=== PATIENT | male | born 1930 | race Caucasian/White ===

== ENCOUNTER 2016-05-19 12:14 | Emergency (ER) | payer OTHER, MEDICAID ==
--- NOTE | 2016-05-19 12:14 | EDPHY ---
H & P Time Seen by Provider: 05/19/16 12:14 HPI/ROS: CHIEF COMPLAINT: Right hip pain HISTORY OF PRESENT ILLNESS: Patient was discharged 05/13/2016 and discharge summary reviewed personally by myself. He had a nondisplaced periprosthetic right hip fracture which was deemed non operative. He is currently in rehab facility. Patient has been complaining of increased moderate right hip pain for the last 2 days. Located in the proximal femoral shaft. States worse with movement states radiates down toward the right knee. Possibility of minor trauma 2 days ago relayed by EMS, patient has no recollection. He arrives by EMS. REVIEW OF SYSTEMS: Eye: no change in vision ENT: no sore throat Cardiac: no chest pain or syncope Pulmonary: no cough or SOB Abdomen: no vomiting, diarrhea, abdominal pain Musculoskeletal: no back pain or neck pain, query recent fall. Skin: no rash Neuro: no headache; ongoing dementia after ICH Constitutional: no fever : no urinary symptoms A comprehensive 10 point review of systems is otherwise negative aside from elements mentioned in the history of present illness. PAST MEDICAL HISTORY: 03/06/2012 right HIRAL by Tamra; also Includes nondisplaced right hip periprosthetic fracture discharge 05/13/2016 non operative treatment, history of seizures, history of brain aneurysm with intraparenchymal hemorrhage, dementia Social history: Current resident of [facility] General Appearance: Alert and cooperative. Eyes: No scleral icterus. ENT, Mouth: Normal mucous membranes. Respiratory: Normal respiratory effort, breath sounds equal, lungs are clear to auscultation. Cardiovascular: Regular rate and rhythm. Gastrointestinal: Abdomen is soft and non tender. Neurological: Alert, follows commands. Normally conversant. Face symmetric, normal sensation in all extremities. Can move both feet. Poor long and short term memory. Skin: Warm and dry, no rashes. No rash or laceration or bruising noted over the right hip. Musculoskeletal: Pain with movement of the right hip. Slight external rotation. Normal motor and sensory in both feet. Normal dorsalis pedis pulse in both feet. No knee, tibia, fibula, or ankle or foot tenderness on the right. Compartments in right thigh soft. Psychiatric: Patient is intermittently calm and then yelling. Emergency Department course/MDM: X-rays of the right femur and hip obtained. Discussed with Master at 1315 and 1325; he reviewed the case and Xrays personally, recommends transfer to joint revision specialist for further evaluation. He does not do this type of surgery. Discussed with the patient and family; he is interested in transfer if needed for evaluation for surgical orthopedic revision. Reason for transfer to [place] for specialist orthopedist discussed with patient and family and consented. Discussed with Dr. Jiménez at [place] at 1330; accepted in transfer to the ED at [place]. Also discussed with ED attending Cleve at 1336. Reason for transfer is joint revision ortho specialist not currently available here at [facility], transfer by EMS required as non ambulatory secondary to ortho injury. Stable for transfer. Constitutional: Initial Vital Signs Temperature (C) 36.6 C 05/19/16 12:21 Heart Rate 88 05/19/16 12:21 Respiratory Rate 18 05/19/16 12:21 Blood Pressure 148/86 H 05/19/16 12:21 O2 Sat (%) 97 05/19/16 12:21 O2 Delivery Mode Room Air Allergies/Adverse Reactions: hydrocodone Allergy (Intermediate, Verified 01/27/16 23:23) Vomiting morphine Allergy (Mild, Verified 01/27/16 23:23) Other-Enter Comments Home Medications: Medication Instructions Recorded Cholecalciferol Vit D3 [Vitamin D3 1,000 units PO HS 05/10/16 (*)] Fluticasone Nasal [Flonase Nasal 2 sprays NASAL HS 05/10/16 [place]] lamoTRIgine [LamICTAL 100 MG (*)] 200 mg PO BID 05/10/16 Acetaminophen [Tylenol 325mg (*)] 650 mg PO Q4HRS PRN #0 tab 05/13/16 Enoxaparin [Lovenox 40 MG (*)] 40 mg SC DAILY #0 syr 05/13/16 Polyethylene Glycol 3350 [Miralax 17 gm PO DAILY PRN #0 pkt 05/13/16 17 gm (*)] Sennosides/Docusate Sodium 1 - 2 tab PO BID #0 tab 05/13/16 [Senokot-S] oxyCODONE IR [Oxycodone Ir (*)] 5 - 10 mg PO Q4 PRN #0 tab 05/13/16 Medical Decision Making - Diagnostics Imaging: X-ray of the right hip and femur viewed independently by myself shows slight increase in displacement of the periprosthetic hip fracture compared x-rays done 2 weeks ago viewed on PACs. Differential Diagnosis: Differential for hip pain considered including but not limited to hip fracture, prosthetic displacement, contusion, pelvis injury. Consult/Admit Bed Type: Tamra [facility]; not in [facility], [facility] consult career orientation teacher Departure - Departure Disposition: Acute Care Hospital Not [facility] Clinical Impression: Periprosthetic fracture around internal prosthetic right hip joint Condition: Good Instructions: Hip Fracture (ED) Referrals: Saran Barboza MD [Medical Doctor] - As per Instructions
[2016-05-19 12:25] VITALS: O2SAT 97
--- NOTE | 2016-05-19 13:28 | DX ---
Right hip series 2 views Right femur series 2 views History: Increasing right-sided hip pain. Findings: Comparison to May 10, 2016. Right hip: Oblique fracture is once again noted proximal right femoral shaft inferior to the greater and lesser trochanters. This has developed minimal displacement since the prior study by about 5 mm. No additional fracture is seen. The femoral and acetabular component of the hip replacements are once again noted. Considering the 5 mm of displacement of the shaft of the right femur this probably repr esents loosening around the distal component of the hip replacement. No additional fractures are seen . There is moderate left hip joint space narrowing. Soft tissues are unremarkable. Right femur: No additional fractures are seen associated with the right femur. The knee joint space i s relatively normal. Soft tissues are unremarkable. Impression: 1. Interval 5 mm of displacement of the fracture proximal shaft right femur below the level of the tr ochanters as detailed above.
[2016-05-19 15:24] VITALS: BP 158/88; PULSE 90; RESP 16; TEMP 98.2
== END 2016-05-19 15:21 | disposition short-term general hospital (02) ==
LOC: EDUNIT#
DX: M97.01XA Periprosthetic fracture around internal prosthetic right hip joint, initial encounter (principal); W19.XXXA Unspecified fall, initial encounter

== ENCOUNTER 2016-06-27 17:17 | Inpatient (IN) | payer OTHER, MEDICAID ==
--- NOTE | 2016-06-27 17:35 | EDPHY ---
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 right hip replacement, aspiartion pneumonia 12/28, dementia - Social History Smoking Status: Former smoker Constitutional: Initial Vital Signs Temperature (C) 38.2 C 06/27/16 17:24 Heart Rate 89 06/27/16 17:24 Respiratory Rate 15 06/27/16 17:24 Blood Pressure 173/83 H 06/27/16 17:24 O2 Sat (%) 91 L 06/27/16 17:24 O2 Delivery Mode Room Air O2 (L/minute) 2 Allergies/Adverse Reactions: hydrocodone Allergy (Intermediate, Verified 06/27/16 17:23) Vomiting morphine Allergy (Mild, Verified 06/27/16 17:23) Other-Enter Comments Home Medications: Medication Instructions Recorded Cholecalciferol Vit D3 [Vitamin D3 1,000 units PO HS 05/10/16 (*)] lamoTRIgine [LamICTAL 100 MG (*)] 200 mg PO BID 05/10/16 Medical Decision Making ED Course/Re-evaluation: CHIEF COMPLAINT: Fever, cough HISTORY OF PRESENT ILLNESS: The patient is is an 85 y/o male arriving with his complaining of a productive cough for the past 2 weeks and intermittent fever for the past few days. His fever got as high as 103F today and he began vomiting. He has been able to keep any food down. He has associated chills and significant fatigue. He has a history of brain aneurysm, TIAs, and dementia. History from the patient is limited and primarily obtained from his at bedside. REVIEW OF SYSTEMS: A 10 point review of systems was performed and is negative with the exception of the elements mentioned in the history of present illness. Obtained from . PHYSICAL EXAM: HR, BP, O2 Sat, RR. Temp noted General Appearance: Fatigued, dehydrated, appropriate, and ill-appearing. Head: Atraumatic without scalp tenderness or obvious injury Eyes: Pupils equal, round, reactive to light and accommodation, EOMI, no trauma , no injection. Ears: Clear bilaterally, no perforation, normal landmarks Nose: Atraumatic, no rhinorrhea, clear. Throat: There is no erythema or exudates, no lesions, normal tonsils, mucus membranes moist. Neck: Supple, 2+ carotid upstroke, nontender, no lymphadenopathy. Respiratory: No retractions, no distress, no wheezes, and no accessory muscle use. Lungs have coarse rhonchi bilaterally, not moving air well. Cardiovascular: Regular rate and rhythm, no murmurs, rubs, or gallops. Bilateral carotid, radial, dorsalis pedis, and posterior tibial pulses intact. Good capillary refill all extremities. Gastrointestinal: Abdomen is soft, nontender, non-distended, no masses, no rebound, no guarding, no peritoneal signs. Musculoskeletal: Normal active ROM of all extremities, atraumatic. Neurological: Somnolent, oriented x2, and interactive but fatigued. The patient has normal DTRs and non-focal cranial nerves, motor, sensory, and cerebellar exam. Skin: No rashes, good turgor, no nodules on palpation. Hot to the touch. Past medical history: Brain aneurysm with intraparenchymal hemorrhage, seizures , dementia, depression TIAs, migraine headaches Past surgical history: Right hip arthroplasty, craniotomy June 2012 for bleed evacuation Family history: noncontributory Social history: at bedside, daily cannabis use Prior medical records reviewed including admission 05/10/16 for hip pain. DIAGNOSTICS/PROCEDURES/CRITICAL CARE TIME: Study: Chest x-ray Indication: Cough, fever Results: Chest x-ray was obtained. The results of the study are right middle lobe and lower lobe pneumonia. The study was read by the radiologist, Dr. Syed. I viewed the images myself on the PACS system. DIFFERENTIAL DIAGNOSIS: The differential diagnosis for the patient's fever included but was not limited to pneumonia, urinary tract infection, viral syndrome, meningitis, and sepsis. MEDICAL DECISION MAKING: The patient is a chronically-ill appearing 85 y/o male who presents with a several week history of productive cough and intermittent fever over the last few days. His reports he has been increasingly fatigued and starting vomiting today. He complains of chills. He has bilateral coarse rhonchi and is warm to the touch on exam. His symptoms likely indicate pneumonia, but will check for other infectious sources as well. IV established. Labs drawn including CBC, CHEM, lactate, culture, bilirubin, PTPTT. Flu swab ordered. UA ordered. Chest x-ray ordered. 1000mg PO Tylenol and 1L IV NS administered. Chest x-ray shows right middle and lower lobe pneumonia. While he has a known infection he does not meet sepsis criteria. Plan for 500mg IV azithromycin and 1gm IV Ceftriaxone and admission to the hospital. 1825: Spoke with Dr. Moss, hospitalist. He accepts admission. - Data Points Laboratory Results: Laboratory Results 06/27/16 17:40 06/27/16 17:40 06/27/16 06/27/16 17:45 17:40 WBC 16.90 H 10^3/uL (3.80-9.50) RBC 3.83 L 10^6/uL (4.40-6.38) Hgb 12.2 L g/dL (13.7-17.5) Hct 36.3 L % (40.0-51.0) MCV 94.8 fL (81.5-99.8) MCH 31.9 pg (27.9-34.1) MCHC 33.6 g/dL (32.4-36.7) RDW 15.3 H % (11.5-15.2) Plt Count 420 H 10^3/uL (150-400) MPV 8.7 fL (8.7-11.7) Neut % (Auto) 91.0 H % (39.3-74.2) Lymph % (Auto) 3.1 L % (15.0-45.0) [place] % (Auto) 4.9 % (4.5-13.0) Eos % (Auto) 0.0 L % (0.6-7.6) Baso % (Auto) 0.2 L % (0.3-1.7) Nucleat RBC Rel Count 0.0 % (0.0-0.2) Absolute Neuts (auto) 15.37 H 10^3/uL (1.70-6.50) Absolute Lymphs (auto) 0.52 L 10^3/uL (1.00-3.00) Absolute Monos (auto) 0.83 H 10^3/uL (0.30-0.80) Absolute Eos (auto) 0.00 L 10^3/uL (0.03-0.40) Absolute Basos (auto) 0.04 10^3/uL (0.02-0.10) Absolute Nucleated RBC 0.00 10^3/uL (0-0.01) Immature Gran % 0.8 % (0.0-1.1) Immature Gran # 0.14 H 10^3/uL (0.00-0.10) PT 14.8 SEC (12.0-15.0) INR 1.16 (0.83-1.16) APTT 29.3 SEC (23.0-38.0) VBG Lactic Acid 1.3 mmol/L (0.7-2.1) Sodium 143 mEq/L (134-144) Potassium 3.1 L mEq/L (3.5-5.2) Chloride 106 mEq/L (97-110) Carbon Dioxide 24 mEq/l (22-31) Anion Gap 13 mEq/L (8-16) BUN 14 mg/dL (7-23) Creatinine 0.9 mg/dL (0.7-1.3) Estimated GFR > 60 Glucose 120 H mg/dL (70-100) Calcium 9.1 mg/dL (8.5-10.4) Total Bilirubin 0.7 mg/dL (0.1-1.4) Influenza Typ A,B (DFA) NEGATIVE FOR FLU (NEGATIVE) Medications Given: Discontinued Medications Acetaminophen (Tylenol) 1,000 mg PO EDNOW ONE Stop: 06/27/16 17:43 Last Admin: 06/27/16 17:47 Dose: 1,000 mg Departure - Departure Disposition: [facility] In[facility] Acute Clinical Impression: Pneumonia Qualifiers: Qualifier Code: (J18.1) Lobar pneumonia, unspecified organism Condition: Fair Report Scribed for: Dante Rosales Report Scribed by: Nati Dailey Date of Report: 06/27/16 Time of Report: 18:00
[2016-06-27] MEDS ORDERED: ACETAMINOPHEN 500 MG TAB PO ONE (17:42)
[2016-06-27 17:52] LABS: % IMMATURE GRANULYOCYTES 0.8 % (0.0-1.1); ABSOLUTE IMMATURE GRANULOCYTES 0.14 10^3/uL (0.00-0.10); ADD DIFF? NO; ADD MORPH? NO; ADD SCAN? NO; ATYPICAL LYMPHOCYTE FLAG 0 (0-99); FRAGMENT RBC FLAG 0 (0-99); HEMATOCRIT 36.3 % (40.0-51.0); HEMOGLOBIN 12.2 g/dL (13.7-17.5); LEFT SHIFT FLG 20 (0-99); LIPEMIA HEMOLYSIS FLAG 80 (0-99); MEAN CELL HEMOGLOBIN 31.9 pg (27.9-34.1); MEAN CELL HEMOGLOBIN CONCENTR. 33.6 g/dL (32.4-36.7); MEAN CELL VOLUME 94.8 fL (81.5-99.8); MEAN PLATELET VOLUME 8.7 fL (8.7-11.7); PLATELET CLUMPS FLAG 20 (0-99); PLATELET COUNT 420 10^3/uL (150-400); RED BLOOD CELL COUNT 3.83 10^6/uL (4.40-6.38); RED CELL DISTRIBUTION WIDTH 15.3 % (11.5-15.2)
[2016-06-27 18:02] LABS: INR 1.16 (0.83-1.16); PROTIME(PATIENT) 14.8 SEC (12.0-15.0)
[2016-06-27 18:03] LABS: APTT 29.3 SEC (23.0-38.0)
[2016-06-27 18:10] LABS: ANION GAP 13 mEq/L (8-16); BILIRUBIN,TOTAL 0.7 mg/dL (0.1-1.4); CALCIUM 9.1 mg/dL (8.5-10.4); CARBON DIOXIDE 24 mEq/l (22-31); CHLORIDE 106 mEq/L (97-110); CREATININE 0.9 mg/dL (0.7-1.3); GLOMERULAR FILTRATION RATE > 60; GLUCOSE 120 mg/dL (70-100); POTASSIUM 3.1 mEq/L (3.5-5.2); SODIUM 143 mEq/L (134-144)
[2016-06-27] MEDS ORDERED: AZITHROMYCIN IV 500 MG in D5W 250 ML IV ONE (18:21)
[2016-06-27] MEDS ORDERED: NS 1,000 ML IV ONE (18:36)
--- NOTE | 2016-06-27 19:56 | DX ---
Chest, Two Views June 27, 2016 at 1727 Hours History: Cough, shortness of breath. Meets sepsis criteria, suspected infection. Comparison: January 2016 and December 2012. Findings: Cardiac silhouette is within normal range. Alveolar opacity identified in the right middle lobe and right lower lobe, new since the previous studies. Left lung is clear. No definite pleural ef fusion or pneumothorax. Atherosclerotic tortuous aorta. Impression: 1. Right middle lobe and right lower lobe pneumonia. 2. Recommend follow-up until clear. Findings and recommendations discussed with emergency department physician, Dante Rosales MD at 180 0 hours on June 27, 2016. Final report concurs with initial preliminary interpretation.
[2016-06-27] MEDS ORDERED: ONDANSETRON 4 MG/2 ML VIAL IVP PRN (20:38)
[2016-06-27] MEDS ORDERED: ACETAMINOPHEN 325 MG TAB PO PRN (20:38)
[2016-06-27] MEDS ORDERED: ONDANSETRON DISINTEGRATING 4 MG TAB PO PRN (20:38)
--- NOTE | 2016-06-27 21:17 | GHP ---
[f rep st] HISTORY AND PHYSICAL DATE OF ADMISSION: 06/27/2016 CHIEF COMPLAINT: Cough, fever. HISTORY OF PRESENT ILLNESS: This is an 85-year-old male with a history of intracranial hemorrhage wi th resultant right-sided weakness. He has had 2 weeks of cold-like symptoms, but then in the last co uple of days had fever and today vomiting. Has had productive cough. No anto chills and fatigue. Fever today of 103. REVIEW OF SYSTEMS: A 10-point review of systems was obtained and was negative. PAST MEDICAL HISTORY: 1. Intracranial hemorrhage. 2. Seizure disorder. 3. Dementia. MEDICATIONS: Reviewed. SOCIAL HISTORY: No smoking. He does smoke some marijuana. FAMILY HISTORY: Both parents are . PHYSICAL EXAMINATION: VITAL SIGNS: Afebrile. Blood pressure is 140/69, heart rate 87, oxygen satur ation 96% on room air. GENERAL: Patient is well developed, in no apparent distress. HEENT: Nonict santiago sclerae. EOMs intact. Moist mucous membranes. NECK: Supple. No thyromegaly. LUNGS: Fair e ffort, fairly clear. CARDIOVASCULAR: Regular rate and rhythm. No murmurs, gallops. ABDOMEN: Posi tive bowel sounds. Soft, nontender, nondistended. No hepatosplenomegaly. EXTREMITIES: No clubbing , cyanosis, or edema. SKIN: Without rash, dry, intact. NEUROLOGIC: Alert, responding to some ques tions. Right-sided weakness. PSYCHIATRIC: Normal mood and affect. LABORATORY DATA: White blood count 16, hemoglobin is 12, platelets 420. Chemistries normal. Potass ium 3.1. Chest x-ray shows right middle lobe, right lower lobe pneumonia. ASSESSMENT/PLAN: This is an 85-year-old male presenting with community-acquired pneumonia. 1. Community-acquired pneumonia. Patient was in the hospital in April, but we will treat as comm unity-acquired. The other option would be aspiration. At this point, would treat with standard ceft riaxone and azithromycin. If he is not improving by tomorrow, would probably switch over to antibiot ic that would cover aspiration. 2. History of intracranial hemorrhage with resultant right-sided weakness. 3. Seizure disorder. Continue Lamictal. /[id number]/MODL
[2016-06-27] MEDS: NS 1,000 ML IV SCH (21:38)
[2016-06-27] MEDS: lamoTRIgine 100 MG TAB PO SCH (21:38)
[2016-06-28 01:44] LABS: COLOR YELLOW; LEUKOCYTE ESTERASE,URINE NEGATIVE (NEGATIVE); NITRITE,URINE NEGATIVE (NEGATIVE)
[2016-06-28 01:50] LABS: MUCUS 4+ /lpf (NONE-1+)
[2016-06-28 06:06] LABS: ALANINE AMINOTRANSFERASE 24 IU/L (21-72); ALBUMIN 2.5 g/dL (3.5-5.0); ALKALINE PHOSPHATASE 76 IU/L (38-126); ANION GAP 6 mEq/L (8-16); ASPARTATE AMINOTRANSFERASE 16 IU/L (17-59); BILIRUBIN,TOTAL 0.5 mg/dL (0.1-1.4); CALCIUM 7.8 mg/dL (8.5-10.4); CARBON DIOXIDE 24 mEq/l (22-31); CHLORIDE 111 mEq/L (97-110); CREATININE 0.7 mg/dL (0.7-1.3); GLOMERULAR FILTRATION RATE > 60; GLUCOSE 90 mg/dL (70-100); POTASSIUM 3.2 mEq/L (3.5-5.2); SODIUM 141 mEq/L (134-144)
[2016-06-28 07:14] LABS: % IMMATURE GRANULYOCYTES 0.8 % (0.0-1.1); ABSOLUTE IMMATURE GRANULOCYTES 0.11 10^3/uL (0.00-0.10); ADD DIFF? NO; ADD MORPH? NO; ADD SCAN? NO; ATYPICAL LYMPHOCYTE FLAG 0 (0-99); FRAGMENT RBC FLAG 0 (0-99); HEMATOCRIT 28.6 % (40.0-51.0); HEMOGLOBIN 9.4 g/dL (13.7-17.5); LEFT SHIFT FLG 10 (0-99); LIPEMIA HEMOLYSIS FLAG 80 (0-99); MEAN CELL HEMOGLOBIN 31.8 pg (27.9-34.1); MEAN CELL HEMOGLOBIN CONCENTR. 32.9 g/dL (32.4-36.7); MEAN CELL VOLUME 96.6 fL (81.5-99.8); MEAN PLATELET VOLUME 9.6 fL (8.7-11.7); PLATELET CLUMPS FLAG 0 (0-99); PLATELET COUNT 337 10^3/uL (150-400); RED BLOOD CELL COUNT 2.96 10^6/uL (4.40-6.38); RED CELL DISTRIBUTION WIDTH 15.4 % (11.5-15.2)
[2016-06-28] MEDS: AZITHROMYCIN 250 MG TAB PO SCH ×2 (10:09→10:39)
[2016-06-28] MEDS: ENOXAPARIN 40 MG/0.4 ML SYR SC SCH ×2 (10:09→10:39)
[2016-06-28] MEDS: lamoTRIgine 100 MG TAB PO SCH ×3 (10:10→20:41)
[2016-06-28] MEDS: NS 1,000 ML IV SCH (10:13)
--- NOTE | 2016-06-28 17:28 | HOSPPROG ---
Hospitalist Progress Note Assessment/Plan: 85 yo M w/hx of ICH with residual right sided deficits presenting with CAP # CAP: with RML and RLL PNA noted on personal review of imaging, continue on ctx /azithro # sepsis: with fever and luekocytosis but non toxic and HD stable, 2/2 above, cultures pending # h/o ICH: with residual right sided weakness and cognitive deficits, unclear if patient is at baseline, will need to get further hx from family. # deconditioning: patient unable to walk independently, will get pt/ot/cm involved, unclear if able to return to home # seizure d/o: continue op meds # dispo: IP status, will need > 48 hours stay for eval/mgmt of above patient new to my care. old records reviewed and summarized as above. Subjective: no significant overnight events, patient currenlty states he feels better than we think he's doing Objective: Vital Signs Temp Pulse Resp BP Pulse Ox 36.8 C 87 16 140/78 H 95 06/28/16 15:36 06/28/16 15:36 06/28/16 15:36 06/28/16 15:36 06/28/16 15:36 Laboratory Results 06/28/16 05:10 06/28/16 05:10 06/27/16 06/28/16 06/29/16 05:59 05:59 05:59 Intake Total 1000 596 Output Total 60 200 Balance 940 396 PT 14.8 SEC (12.0-15.0) 06/27/16 17:40 INR 1.16 (0.83-1.16) 06/27/16 17:40 awake alert anicteric op clear rrr no mrg coarse bs wet cough soft nt nd no cce warm dry well perfused oriented appropriate - Time Spent With Patient Time Spent with Patient: greater than 35 minutes Time Spent with Patient: Greater than 35 minutes spent on this patients care, greater than 50% of time spent counseling, educating, and coordinating care regarding the above mentioned plan. ICD10 Worksheet Patient Problems: Problems Problem Status Diagnosed Pneumonia Acute Periprosthetic fracture around internal prosthetic right hip joint Acute Seizure Acute Dante's paralysis Acute
[2016-06-29 06:46] LABS: ANION GAP 9 mEq/L (8-16); CALCIUM 8.3 mg/dL (8.5-10.4); CARBON DIOXIDE 25 mEq/l (22-31); CHLORIDE 106 mEq/L (97-110); CREATININE 0.7 mg/dL (0.7-1.3); GLOMERULAR FILTRATION RATE > 60; GLUCOSE 90 mg/dL (70-100); POTASSIUM 3.2 mEq/L (3.5-5.2); SODIUM 140 mEq/L (134-144)
[2016-06-29 06:56] LABS: % IMMATURE GRANULYOCYTES 1.5 % (0.0-1.1); ABSOLUTE IMMATURE GRANULOCYTES 0.18 10^3/uL (0.00-0.10); ABSOLUTE NRBC COUNT 0.02 10^3/uL (0-0.01); ADD DIFF? NO; ADD MORPH? NO; ADD SCAN? NO; ATYPICAL LYMPHOCYTE FLAG 0 (0-99); FRAGMENT RBC FLAG 20 (0-99); HEMATOCRIT 30.1 % (40.0-51.0); HEMOGLOBIN 9.9 g/dL (13.7-17.5); LEFT SHIFT FLG 10 (0-99); LIPEMIA HEMOLYSIS FLAG 80 (0-99); MEAN CELL HEMOGLOBIN 31.7 pg (27.9-34.1); MEAN CELL HEMOGLOBIN CONCENTR. 32.9 g/dL (32.4-36.7); MEAN CELL VOLUME 96.5 fL (81.5-99.8); MEAN PLATELET VOLUME 8.9 fL (8.7-11.7); NRBC-AUTO% 0.2 % (0.0-0.2); PLATELET CLUMPS FLAG 10 (0-99); PLATELET COUNT 444 10^3/uL (150-400); RED BLOOD CELL COUNT 3.12 10^6/uL (4.40-6.38); RED CELL DISTRIBUTION WIDTH 15.3 % (11.5-15.2)
[2016-06-29 07:23] VITALS: BP 160/89; PULSE 80; RESP 18; TEMP 97.9
[2016-06-29] MEDS: lamoTRIgine 100 MG TAB PO SCH (08:29)
[2016-06-29] MEDS: AZITHROMYCIN 250 MG TAB PO SCH (08:29)
[2016-06-29] MEDS: ENOXAPARIN 40 MG/0.4 ML SYR SC SCH (08:31)
[2016-06-29 10:43] VITALS: O2SAT 91
[2016-06-29] MEDS ORDERED: POTASSIUM CL 20 MEQ/15 ML UDCUP PO ONE (12:45)
--- NOTE | 2016-06-29 13:37 | PDIAF ---
- Diagnosis Code Status: Full Code - Medication Management Discharge Medications: Medications to Continue on Transfer Cholecalciferol Vit D3 [Vitamin D3 (*)] 1,000 units PO HS 05/10/16 [Last Taken 06/26/16] Multivitamins [Multivitamin (*)] 1 each PO HS 06/27/16 [Last Taken 06/26/16] Acetaminophen [Tylenol 325mg (*)] 650 mg PO Q4HRS PRN #0 tab 06/29/16 [Last Taken Unknown] lamoTRIgine [LamICTAL 100 MG (*)] 200 mg PO BID #0 tab 06/29/16 [Last Taken Unknown] levOFLOXACIN [Levofloxacin] 750 mg PO DAILY #8 tablet 06/29/16 [Last Taken Unknown] Discharge Medications: Refer to the Discharge Home Medication list for PRN reason. - Orders Services needed: Home Care, Registered Nurse, Certified Director Of Quantitative Research, Physical Therapy, Occupational Therapy Home Care Face to Face: I certify that this patient was under my care and that I had the required [id number] encounter meeting the encounter requirements on the discharge day. My findings support the fact that the patient is homebound as defined in CMS Chapter 7 Medicare Benefits Manual 30.1.1, The condition of the patient is such that there exists a normal inability to leave home and consequently, leaving home would require a considerable and taxing effort. Diet Recommendation: no restrictions on diet - Labs/Radiology BMP Date: 07/01/16 - Follow Up Care Current Providers and Referrals: RAMBO MENDIETA [Primary Care Provider] - As per Instructions
--- NOTE | 2016-06-29 13:52 | PDDCSUM ---
Discharge Summary Discharge Summary: Dates of service 06/27-06/29/16 Discharge diagnosis: # CAP # sepsis # h/o ICH with residual cognitive deficits # seizure d/o # deconditioning Consultations/procedures performed: none Hospital course by problem: # CAP: with RML and RLL PNA noted on personal review of imaging, treated with ctx/azithro in house and dc'ed home on augmentin # sepsis: with fever and luekocytosis but non toxic and HD stable, 2/2 above, cultures pending # h/o ICH: with residual right sided weakness and cognitive deficits, unclear if patient is at baseline, will need to get further hx from family. # deconditioning: patient unable to walk independently, this is apparently at baseline and he would prefer to go back home with his , she agrees with this plan, will have home health involved # seizure d/o: continue op meds DC home with home health f/u with pcp Meds: see EHR > 35 min spent in dc of patient more than half in coordination of care and face to face care
== END 2016-06-29 15:06 | disposition home health service (06) | DRG 871 ==
LOC: F3E 19:50
PROVIDERS: ADMIT Internal Medicine; ATTEND Internal Medicine
DX: A41.9 Sepsis, unspecified organism (principal); J18.9 Pneumonia, unspecified organism; F03.90 Unspecified dementia, unspecified severity, without behavioral disturbance, psychotic disturbance, mood disturbance, and anxiety; G40.909 Epilepsy, unspecified, not intractable, without status epilepticus; I69.319 Unspecified symptoms and signs involving cognitive functions following cerebral infarction; I69.351 Hemiplegia and hemiparesis following cerebral infarction affecting right dominant side; Z87.891 Personal history of nicotine dependence; Z96.641 Presence of right artificial hip joint
CPT/HCPCS: 96374; 97161-GP; 97165-GO; 97530-GP; G8978-GP-CK; G8979-GP-CI; G8987-GO-CK; G8988-GO-CJ; J0456; J0696; J1650

== ENCOUNTER 2016-07-09 11:29 | Emergency (ER) | payer OTHER, MEDICAID ==
--- NOTE | 2016-07-09 11:37 | EDPHY ---
HPI/HX/ROS/PE/MDM Narrative: CHIEF COMPLAINT: Resolved right-sided weakness, slurred speech HPI: The patient is an 85 y/o male with an extensive neurologic history including hemorrhagic aneurysm, TIA, migraines, and seizures who has baseline right-sided weakness. His brought him to the ED today of TIA symptoms onset around 09:00, 2.5 hours ago, with [id number] weakness that has resolved upon arrival in the ED. He states, "she said I had a stroke that lasted 5 minutes, but I don't think I did." She describes him "behaving weirdly , talking angrily, and slurring his speech." She then noticed difficulty walking and grasping with his right hand. His symptoms resolved about 5 minutes later after using the bathroom. His states these symptoms are similar to his previous neurologic issues. She contacted their neurologist, who referred them to the ED for evaluation. REVIEW OF SYSTEMS: Aside from elements discussed in the HPI, a comprehensive 10-point review of systems was reviewed and is negative. PMH: intraparenchymal hemorrhage status post craniotomy 2013, TIAs, migraines, Dante's Paralysis, seizure history, right total hip arthroplasty, dementia Prior medical records reviewed including admission 01/27/16 for right-sided weakness following seizure. SOCIAL HISTORY: Former smoker, Neurosurgeon: Dr. Rios PHYSICAL EXAM: General:Patient is alert, in no acute distress. ENT:Eyes are normal to inspection. ENT inspection normal. Neck: Normal inspection. Full range of motion. Respiratory:No respiratory distress. Breath sounds normal bilaterally. Cardiovascular: Regular rate and rhythm. Strong peripheral pulses. Normal cap refill. Abdomen:The abdomen is nontender to palpation. There are no peritoneal signs. There are normal bowel sounds. Back: Normal to inspection. No tenderness to palpation. Skin: Normal color. No rash. Warm and dry. Extremities: Normal appearance. Full range of motion. Neuro: Oriented x3. Normal motor function. Normal sensory function. No pronator drift. Normal straight leg raise. No face asymmetry. ED Course: IV established. Labs drawn including CBC, CHEM, troponin. Plan for ISTAT then head CT if creatinine is normal. Patient placed on senior corporate recruiter. The 12 lead EKG was interpreted by myself. See hard copy and/or "tracemaster" electronic copy for interpretation. Study: CT of the Head with IV contrast Indication: extremity weakness, slurred speech - now resolved Results: CT scan of the head was obtained. The results of the study are nothing acute. The study was read by the radiologist, Dr. Fagan. I viewed the images myself on the PACS system. MDM: This patient presents with a brief period of sounds like altered mental status and transient right-sided weakness, both of which have fully resolved. The patient has had recent extensive workup related to similar complaints and has been thought to have Dante's paralysis in the past after similar presentations. The patient's CT head today shows no sign of acute issue. The patient remains with baseline neuro exam on re-evaluation at 1:20 p.m.. Patient and family feel comfortable going home. The patient is certainly not a tPA candidate given prior MRI Adam strokes and aneurysm. We discussed strict return precautions. - Data Points Laboratory Results: Laboratory Results 07/09/16 11:55 07/09/16 11:55 07/09/16 07/09/16 11:55 11:55 WBC 7.22 10^3/uL 10^3/uL (3.80-9.50) RBC 3.77 10^6/uL L 10^6/uL (4.40-6.38) Hgb 12.2 g/dL L g/dL (13.7-17.5) Hct 37.2 % L % (40.0-51.0) MCV 98.7 fL fL (81.5-99.8) MCH 32.4 pg pg (27.9-34.1) MCHC 32.8 g/dL g/dL (32.4-36.7) RDW 16.0 % H % (11.5-15.2) Plt Count 584 10^3/uL H 10^3/uL (150-400) MPV 8.4 fL L fL (8.7-11.7) Neut % (Auto) 74.9 % H % (39.3-74.2) Lymph % (Auto) 15.2 % % (15.0-45.0) [place] % (Auto) 6.8 % % (4.5-13.0) Eos % (Auto) 0.6 % % (0.6-7.6) Baso % (Auto) 1.0 % % (0.3-1.7) Nucleat RBC Rel Count 0.0 % % (0.0-0.2) Absolute Neuts (auto) 5.41 10^3/uL 10^3/uL (1.70-6.50) Absolute Lymphs (auto) 1.10 10^3/uL 10^3/uL (1.00-3.00) Absolute Monos (auto) 0.49 10^3/uL 10^3/uL (0.30-0.80) Absolute Eos (auto) 0.04 10^3/uL 10^3/uL (0.03-0.40) Absolute Basos (auto) 0.07 10^3/uL 10^3/uL (0.02-0.10) Absolute Nucleated RBC 0.00 10^3/uL 10^3/uL (0-0.01) Immature Gran % 1.5 % H % (0.0-1.1) Immature Gran # 0.11 10^3/uL H 10^3/uL (0.00-0.10) Sodium 139 mEq/L mEq/L (134-144) Potassium 4.6 mEq/L mEq/L (3.5-5.2) Chloride 102 mEq/L mEq/L (97-110) Carbon Dioxide 28 mEq/l mEq/l (22-31) Anion Gap 9 mEq/L mEq/L (8-16) BUN 16 mg/dL mg/dL (7-23) Creatinine 0.9 mg/dL mg/dL (0.7-1.3) Estimated GFR > 60 Glucose 77 mg/dL mg/dL (70-100) Calcium 9.3 mg/dL mg/dL (8.5-10.4) Troponin I < 0.012 ng/mL ng/mL (0-0.034) General Initial Vital Signs: Initial Vital Signs Temperature (C) 36.4 C 07/09/16 11:54 Heart Rate 89 07/09/16 11:54 Respiratory Rate 16 07/09/16 11:54 Blood Pressure 148/80 H 07/09/16 11:54 O2 Sat (%) 95 07/09/16 11:54 O2 Delivery Mode Room Air Allergies/Adverse Reactions: No Known Allergies Allergy (Verified 07/09/16 11:53) Home Medications: Medication Instructions Recorded Cholecalciferol Vit D3 [Vitamin D3 1,000 units PO HS 05/10/16 (*)] Multivitamins [Multivitamin (*)] 1 each PO HS 06/27/16 Acetaminophen [Tylenol 325mg (*)] 650 mg PO Q4HRS PRN #0 tab 06/29/16 Potassium Chloride 20 meq PO DAILY #14 tab.er.prt 06/29/16 lamoTRIgine [LamICTAL 100 MG (*)] 200 mg PO BID #0 tab 06/29/16 levOFLOXACIN [Levofloxacin] 750 mg PO DAILY #8 tablet 06/29/16 Departure - Departure Disposition: Home, Routine, Self-Care Clinical Impression: Right sided weakness Condition: Good Instructions: Weakness (ED) Additional Instructions: Follow up with your neurologist in the next 2-3 days. Return to the ED for any worsening of condition. Referrals: RAMBO MENDIETA [Primary Care Provider] - As per Instructions Mukesh Rios MD [Medical Doctor] - As per Instructions Report Scribed for: Ravindra James Report Scribed by: Nati Dailey Date of Report: 07/09/16 Time of Report: 11:33 Physician Review and Approval Statement: Portions of this note were transcribed by an ED scribe. I personally performed the history, physical exam, and medical decision making; and confirm the accuracy of the information in the transcribed note.
--- NOTE | 2016-07-09 11:44 | CPEKG ---
Heart Rate: 87 RR Interval: 690 P-R Interval: 156 QRSD Interval: 90 QT Interval: 376 QTC Interval: 453 P [place]: 61 QRS [place]: 34 T Wave [place]: 41 EKG Severity - ABNORMAL ECG - EKG Impression: SINUS RHYTHM EKG Impression: CONSIDER LEFT VENTRICULAR HYPERTROPHY Electronically Signed By: Ravindra James 09-Jul-2016 14:13:04
[2016-07-09 12:11] LABS: % IMMATURE GRANULYOCYTES 1.5 % (0.0-1.1); ABSOLUTE IMMATURE GRANULOCYTES 0.11 10^3/uL (0.00-0.10); ADD DIFF? NO; ADD MORPH? NO; ADD SCAN? NO; ATYPICAL LYMPHOCYTE FLAG 10 (0-99); FRAGMENT RBC FLAG 0 (0-99); HEMATOCRIT 37.2 % (40.0-51.0); HEMOGLOBIN 12.2 g/dL (13.7-17.5); LEFT SHIFT FLG 10 (0-99); LIPEMIA HEMOLYSIS FLAG 80 (0-99); MEAN CELL HEMOGLOBIN 32.4 pg (27.9-34.1); MEAN CELL HEMOGLOBIN CONCENTR. 32.8 g/dL (32.4-36.7); MEAN CELL VOLUME 98.7 fL (81.5-99.8); MEAN PLATELET VOLUME 8.4 fL (8.7-11.7); PLATELET CLUMPS FLAG 0 (0-99); PLATELET COUNT 584 10^3/uL (150-400); RED BLOOD CELL COUNT 3.77 10^6/uL (4.40-6.38)
[2016-07-09 12:24] VITALS: TEMP 97.5
[2016-07-09 12:30] VITALS: O2SAT 94
[2016-07-09 12:32] LABS: ANION GAP 9 mEq/L (8-16); CALCIUM 9.3 mg/dL (8.5-10.4); CARBON DIOXIDE 28 mEq/l (22-31); CHLORIDE 102 mEq/L (97-110); CREATININE 0.9 mg/dL (0.7-1.3); GLOMERULAR FILTRATION RATE > 60; GLUCOSE 77 mg/dL (70-100); POTASSIUM 4.6 mEq/L (3.5-5.2); SODIUM 139 mEq/L (134-144)
[2016-07-09 12:43] LABS: TROPONIN I < 0.012 ng/mL (0-0.034)
[2016-07-09 13:33] VITALS: BP 127/70; PULSE 82; RESP 16
== END 2016-07-09 13:32 | disposition home or self-care (01) ==
DX: R53.1 Weakness (principal); Z86.73 Personal history of transient ischemic attack (TIA), and cerebral infarction without residual deficits; Z87.891 Personal history of nicotine dependence

== ENCOUNTER 2016-10-20 15:11 | Emergency (ER) | payer OTHER, MEDICAID ==
--- NOTE | 2016-10-20 16:12 | EDPHY ---
H & P Time Seen by Provider: 10/20/16 15:47 HPI/ROS: CHIEF COMPLAINT: Fall, ear laceration HISTORY OF PRESENT ILLNESS: This is an 85-year-old male patient presenting to the emergency department with family. Patient states he went to sit down on what he thought was a chair fell back scraping his left ear on a wall hook around an hour prior to arrival. Patient denies any LOC, any syncope, tetanus up-to-date. REVIEW OF SYSTEMS: Constitutional: No fever, no chills. Eyes: No discharge. No blurred vision. No vision in left eye baseline ENT: No sore throat. Cardiovascular: No chest pain, no palpitations. Respiratory: No cough, no shortness of breath. Gastrointestinal: No abdominal pain, no vomiting. Genitourinary: No hematuria. Musculoskeletal: No back pain. Skin: No rashes. Laceration to left ear. Laceration behind left ear Neurological: No headache. Smoking Status: Former smoker Physical Exam: General Appearance: Alert and no distress. [id number] Ear: 0.5 cm laceration left helix, 2 cm laceration behind left ear. Respiratory: Chest is nontender, lungs are clear to auscultation. Cardiac: regular rate and rhythm Gastrointestinal: Abdomen is soft and nontender, no masses, bowel sounds normal. Musculoskeletal: Vertebral cervical spine nontender on palpation full range of motion. Abrasion noted to right occipital Extremities: full range of motion and are nontender. Skin: No rashes or lesions. Constitutional: Initial Vital Signs Temperature (C) 36.4 C 10/20/16 15:16 Heart Rate 86 10/20/16 15:16 Respiratory Rate 16 10/20/16 15:16 Blood Pressure 144/90 H 10/20/16 15:16 O2 Sat (%) 97 10/20/16 15:16 O2 Delivery Mode Room Air Allergies/Adverse Reactions: No Known Allergies Allergy (Verified 07/09/16 11:53) Home Medications: Medication Instructions Recorded Cholecalciferol Vit D3 [Vitamin D3 1,000 units PO HS 05/10/16 (*)] Multivitamins [Multivitamin (*)] 1 each PO HS 06/27/16 Potassium Chloride 20 meq PO DAILY #14 tab.er.prt 06/29/16 lamoTRIgine [LamICTAL 100 MG (*)] 200 mg PO BID #0 tab 06/29/16 Medical Decision Making Procedures: Procedure: Laceration repair. Verbal consent was obtained from the patient and family. 0.5 cm linear laceration on the left helix. 0.5% bupivacaine 3 mL used The wound was irrigated. There were no deep structures involved. The wound was repaired 5-0 chromic gut #2 sutures placed Procedure: Laceration repair. 2cm avulsion laceration posterior aspect of left ear. The wound was irrigated. There were no deep structures involved. The wound was repaired 5-0 chromic gut #4 sutures placed The procedure was performed by myself. A dressing was applied by our EMT. ED Course/Re-evaluation: Discussed ED plan of care: The wound irrigation, and suture 1730: Discussed discharge instructions with the patient and family, discharge home---> stable. Differential Diagnosis: Differential diagnosis considered but not limited to concussion, AMS, and foreign body Departure - Departure Disposition: Home, Routine, Self-Care Clinical Impression: Laceration Condition: Good Instructions: Care For Your Stitches (ED), Laceration (ED) Additional Instructions: 1. This sutures I have placed are absorbable, they will dissolve with wound healing 2. Monitor for any, signs of infection such as: Increased redness, swelling, drainage, fevers 3. Follow up with your primary care provider next week 4. We have initial dressing on for 24 hours, then after daily dressing changes Referrals: RAMBO MENDIETA [Primary Care Provider] - As per Instructions
[2016-10-20 17:38] VITALS: BP 154/90; PULSE 71; RESP 18; TEMP 98.6; O2SAT 96
== END 2016-10-20 17:39 | disposition home or self-care (01) ==
PROC: 0HQ3XZZ Repair Left Ear Skin, External Approach (ICD-10-PCS; principal; 2016-10-20)
DX: S01.312A Laceration without foreign body of left ear, initial encounter (principal); Z87.891 Personal history of nicotine dependence; W22.8XXA Striking against or struck by other objects, initial encounter

== ENCOUNTER 2016-12-20 07:58 | Emergency (ER) | payer OTHER, MEDICAID ==
[2016-12-20 08:06] VITALS: RESP 18
--- NOTE | 2016-12-20 09:02 | EDPHY ---
H & P Stated Complaint: ?fall~ 1 wk ago;c/o L lower rib pain since that hurts more w/ deep breath Time Seen by Provider: 12/20/16 08:31 HPI/ROS: CHIEF COMPLAINT: Rib pain HISTORY OF PRESENT ILLNESS: The patient is an 86 y/o male arriving with his daughter complaining of left rib pain of unclear onset. According to his daughter, he misjudged a step and fell onto his left side one week ago. Ongoing left sided cp since then. He did not strike his head or lose consciousness during that event. His pain is aggravated by movement and positioning. He has been using Advil for pain, but this has been inadequate when the patient tries to sleep. No SOB. He also notes he's been coughing for a long time. He denies abdominal pain, headache, weakness, paraesthesias, or other injuries. REVIEW OF SYSTEMS: Constitutional: No fever, no chills Eyes: No visual changes ENT: No sore throat Respiratory: See HPI Cardiac: No chest pain Gastrointestinal: No nausea, no vomiting, no abdominal pain Genitourinary: No hematuria, no dysuria Musculoskeletal: No leg pain or swelling Skin: No rash Neurological: No headache, no numbness, no weakness Psychiatric: No depression - Personal History Current Tetanus Diphtheria and Acellular Pertussis (TDAP): Yes Tetanus Vaccine Date: <10 years - Medical/Surgical History PMH: PMH includes: 1. Intracranial hemorrhage 2. Seizure disorder 3. Dementia 4. Brain aneurysm 5. Falls Prior medical records reviewed including admission 06/27/16 for cough and fever. Hx Asthma: No Hx Chronic Respiratory Disease: No Hx Diabetes: No Hx Cardiac Disease: No Hx Renal Disease: No Hx Cirrhosis: No Hx Alcoholism: No Hx HIV/AIDS: No Hx Splenectomy or Spleen Trauma: No Other PMH: brain anuerysm w/surgical intervention ; CVA '14 , TIAs, Sz disorder. right hip replacement, aspiartion pneumonia 12/28, dementia,. low vision left eye - Social History Smoking Status: Former smoker Additional Social History: Former smoker. Daughter at bedside. Smokes marijuana. - Physical Exam Exam: General Appearance: Alert, no distress, does not appear in pain Eyes: Pupils equal and round, no conjunctival pallor or injection ENT, Mouth: Mucous membranes moist Neck: Normal inspection Musculoskeletal: Left lateral chest wall tenderness along anterior axillary line. No visible trauma. No midline C/T/L/S tenderness. Respiratory: Lungs are clear to auscultation Cardiovascular: Regular rate and rhythm Gastrointestinal: Abdomen is soft and non- tender Neurological: A&O, nonfocal, normal gait Skin: Warm and dry, no rash Extremities: Nontender, no pedal edema Psychiatric: Mood and affect normal Constitutional: Initial Vital Signs Temperature (C) 36.7 C 12/20/16 08:04 Heart Rate 75 12/20/16 08:04 Respiratory Rate 18 12/20/16 08:04 Blood Pressure 132/81 H 12/20/16 08:04 O2 Sat (%) 96 12/20/16 08:04 O2 Delivery Mode Room Air Allergies/Adverse Reactions: No Known Allergies Allergy (Verified 12/20/16 08:02) Home Medications: Medication Instructions Recorded lamoTRIgine [LamICTAL 100 MG (*)] 200 mg PO BID #0 tab 06/29/16 Hydrocodone/APAP 5/325 [[place] 1 tab PO Q4H PRN #10 tab 12/20/16 5/325 (*)] Lidocaine 5% [Lidoderm 5% Patch 1 ea TD DAILY #10 patch 12/20/16 (*)] Medical Decision Making - Diagnostics Imaging Results: Imaging Impressions Chest X-Ray 12/20/16 08:09 Impression: 1. This patient has severe osteoporosis. There certainly could be a new right rib fracture. 2. Diffuse interstitial lung disease, new since 2012. If further characterization is warranted, then recommend noncontrast high-resolution chest CT. Imaging: Discussed imaging studies w/ call center dispatcher Radiologist, I viewed and interpreted images myself ED Course/Re-evaluation: This is an elderly 86 y/o male with dementia who presents with left lateral rib pain thought secondary to a fall one week ago. He has left lateral chest wall tenderness without visible trauma on exam. He has no midline spinal tenderness nor neuro deficits. Chest x-ray does not clearly show a fractured rib; however, his exam is consistent with a fractured rib. He will be discharged with standard rib fracture and contusion care instructions, scripts for lidocaine patches and Vicodin PRN severe pain, and referral to PCP for follow up. Return precautions given. He and his daughter agree with plan for discharge. Differential Diagnosis: Differential diagnosis includes though it is not limited to pneumonia, pneumothorax, pulmonary embolism, aortic dissection, pericarditis, acute coronary syndrome. - Data Points Medications Given: Discontinued Medications Acetaminophen (Tylenol) 1,000 mg PO EDNOW ONE Stop: 12/20/16 09:12 Last Admin: 12/20/16 09:24 Dose: 1,000 mg Lidocaine (Lidoderm 5%) 1 ea TD EDNOW ONE Stop: 12/20/16 09:12 Last Admin: 12/20/16 09:24 Dose: 1 ea Departure - Departure Disposition: Home, Routine, Self-Care Clinical Impression: Rib fracture Qualifiers: Encounter type: initial encounter Rib fracture type: single rib Fracture type: closed Laterality: left Qualified Code(s): S22.32XA - Fracture of one rib, left side, initial encounter for closed fracture Rib contusion Qualifiers: Encounter type: initial encounter Laterality: left Qualified Code(s): S20.212A - Contusion of left front wall of thorax, initial encounter Condition: Good Instructions: How to Use an Incentive Spirometer (ED), Rib Fracture (ED), Rib Contusion (ED) Additional Instructions: 1. Alternate Tylenol and ibuprofen for pain. See instructions below. 2. Apply lidocaine patch to affected area to treat pain. 3. Use Vicodin as needed for severe pain. Be aware this has Tylenol in it, so you should not take additional doses of Tylenol while using Vicodin. 4. Use the incentive spirometer as directed. 5. Follow up with your primary care provider for unimproved symptoms over the next 1-2 weeks. 6. Return to the ED for severe pain, shortness of breath, fever, or other worsening of condition. Referrals: SHONDA WINSTON [Primary Care Provider] - As per Instructions Prescriptions: Hydrocodone/APAP 5/325 [[place] 5/325 (*)] 1 tab PO Q4H PRN #10 tab PRN Reason: Pain, Severe Lidocaine 5% [Lidoderm 5% Patch (*)] 1 ea TD DAILY #10 patch Report Scribed for: Heather Dennis Report Scribed by: Nati Dailey Date of Report: 12/20/16 Time of Report: 09:01 Physician Review and Approval Statement: 12/20/16 09:01 Portions of this note were transcribed by a quality engineer medical device. I personally performed a history, physical exam, medical decision making, and confirmed accuracy of information the transcribed note.
[2016-12-20] MEDS ORDERED: LIDOCAINE 5% 1 EA PATCH TD ONE (09:11)
[2016-12-20] MEDS ORDERED: ACETAMINOPHEN 500 MG TAB PO ONE (09:11)
[2016-12-20 09:32] VITALS: BP 147/81; PULSE 71; TEMP 97.9; O2SAT 95
[2016-12-20] MEDS ORDERED: PATCH REMOVAL 1 EA PATCH TD SCH (21:00)
== END 2016-12-20 09:30 | disposition home or self-care (01) ==
DX: S22.32XA Fracture of one rib, left side, initial encounter for closed fracture (principal); S20.212A Contusion of left front wall of thorax, initial encounter; Z86.73 Personal history of transient ischemic attack (TIA), and cerebral infarction without residual deficits; Z87.891 Personal history of nicotine dependence; W19.XXXA Unspecified fall, initial encounter
CPT/HCPCS: 80175-90

== ENCOUNTER 2017-02-28 18:49 | Emergency (ER) | payer OTHER, MEDICAID ==
[2017-02-28 18:56] VITALS: RESP 18
--- NOTE | 2017-02-28 19:30 | EDPHY ---
H & P Stated Complaint: fall, injured right thumb Time Seen by Provider: 02/28/17 19:18 HPI/ROS: CHIEF COMPLAINT: Mechanical fall, head injury, right hand and elbow pain HISTORY OF PRESENT ILLNESS: 86-year-old male no anticoagulant use arrives via private vehicle states that shortly prior to arrival he was walking, tripped on some branches impacted his left forehead against a branch and a tree with no loss of consciousness, no nausea or vomiting, is no amnesia. He also impacted his left ribs is complaining of pain at same location, also impacted his left elbow with subsequent abrasion and pain at same location, also impacted his right thumb with pain at same location. He denies: Midline C-spine pain, peripheral paresthesia, weakness, numbness, alcohol or drug use, back pain, abdominal pain, straddle injury. REVIEW OF SYSTEMS: A ten point review of systems was performed and is negative with the exception of the items mentioned in the HPI PAST MEDICAL/SURGICAL HISTORY: no anticoagulant use, SOCIAL HISTORY: denies alcohol use at time of incident PHYSICAL EXAM 1) GENERAL: Well-developed, well-nourished, alert and oriented. Appears to be in no acute distress. Answering questions appropriately. 2) HEAD: Normocephalic, left lateral eyebrow abrasion and hematoma 3) HEENT: Pupils equal, round, reactive to light bilaterally. Negative Horners. Nasopharynx, oropharynx, clear. No deformity or angulation of nose. No septal hematoma. No rhinorrhea. No oral trauma. Ears bilaterally with normal tympanic membranes. No hemotympanum. No fluid or blood in the external auditory canal. No raccoon eyes. No Leon sign. TMJ bilaterally nontender, facial bones nontender including the zygomatic arch, maxilla mandible. 4) NECK: No cervical collar is on. Posterior cervical spine is nontender, no stepoff, no effusion. Full range of motion which does not elicit any midline cervical spine pain, no posterior midline tenderness, no step-off. 5) LUNGS: Clear to auscultation bilaterally, no wheezes, no rhonchi, no retractions. No obvious signs of trauma. Tender to palpation left mid ribs mid axillary line with no visible signs of trauma. No flaring, no grunting. Moving symmetrically. No crepitus. 6) HEART: Regular rate and rhythm, 7) ABDOMEN: No guarding, no rebound, no focal tenderness, no peritoneal signs, no signs of trauma, no ecchymosis 8) MUSCULOSKELETAL: Left upper extremity: Abrasion to the lateral elbow with associated tenderness and full range of motion albeit with some pain. Remainder left upper extremity is otherwise normal with in normal neurovascular examination. Right upper extremity: Ecchymosis and pain to the right 1st metacarpal with reproducible pain with palpation. Otherwise right upper extremity is neurovascularly intact with brisk capillary refill normal color normal temperature., otherwise Moving all extremities, no focal areas of tenderness, no obvious trauma. 9) BACK: No midline vertebral tenderness, no fluctuance, no step-off, no obvious trauma, no visual or palpable abnormality. 10) SKIN: No laceration. DIFFERENTIAL DIAGNOSIS: Not necessarily in any particular order, my differential diagnosis includes, but is not limited to, concussion, skull fracture, intraparenchymal contusion, subarachnoid, subdural and epidural hematoma. The patient understands that this diagnosis is provisional and can never be 100% accurate. - Personal History Current Tetanus Diphtheria and Acellular Pertussis (TDAP): Yes Tetanus Vaccine Date: <10 years - Medical/Surgical History Hx Asthma: No Hx Chronic Respiratory Disease: No Hx Diabetes: No Hx Cardiac Disease: No Hx Renal Disease: No Hx Cirrhosis: No Hx Alcoholism: No Hx HIV/AIDS: No Hx Splenectomy or Spleen Trauma: No Other PMH: brain anuerysm w/surgical intervention ; CVA '14 , TIAs, Sz disorder. right hip replacement, aspiartion pneumonia 12/28, dementia,. 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 Wrist X-Ray 02/28/17 18:58 Impression: Negative for fracture. Elbow X-Ray 02/28/17 19:26 Impression: Negative for fracture. Ribs w/Chest X-Ray 02/28/17 19:26 Impression: 1. Minimally-displaced left lower rib fracture, with no associated pneumothorax. 2. See above report for additional findings. Head CT 02/28/17 19:27 Findings: Ventricles, cisterns, and sulci are prominently widened consistent with diffuse atrophy. There is no hydrocephalus, midline shift/herniation, or epidural/subdural hematoma. Additionally, there is left temporal encephalomalacia in the region of previous craniotomy. This appearance is unchanged. The craniotomy flap is stable. No intraparenchymal hemorrhage or mass effect is identified. Physiologic calcifications are again seen. Hypodensities are noted in the periventricular and subcortical white matter bilaterally. No acute cortical ischemia is identified. Cerebrovascular atherosclerosis is identified. Bone windows demonstrate no displaced fractures. Paranasal sinuses and mastoid air cells are clear. Previously seen left maxillary sinusitis has resolved. Impression: 1. Negative for intracranial hemorrhage. 2. Elderly brain with atrophy and probable white matter small vessel disease. 3. Postoperative changes with left craniotomy flap and left encephalomalacia. 4. See above report for additional findings. Results called and discussed with Robert GUILLORY on 02/28/2017 at 20:[address] 02/28/17 20:52 Impression: 1. Facial bones negative for acute fracture, with mild deformity of the left mandibular condyle, unchanged from June 2016 and possibly related to the residua of remote trauma. 2. See above report for additional findings. Results called and discussed with Vianney Monsalve PA-C, on February 28, 2017 at 2136. Images reviewed by myself Procedures: Procedure: Incentive spirometer teaching Procedure: Splint #1 A right hand Velcro thumb spica splint was applied by ER solar energy technician. After application of the splint I returned and re-examined the patient. The splint was adequately immobilizing the joint and distal to the splint the patient's circulation and sensation were intact. Patient shows no signs of compartment syndrome. Was given orthopedic precautions. Procedure: Splint #2 A Velcro volar left wrist splint was applied by ER solar energy technician. After application of the splint I returned and re-examined the patient. The splint was adequately immobilizing the joint and distal to the splint the patient's circulation and sensation were intact. Patient shows no signs of compartment syndrome. Was given orthopedic precautions. ED Course/Re-evaluation: 7:27 p.m.:Head CT ordered in this patient for trauma for the following indication: greater than 65 years old. Will obtain imaging of the head, elbow, wrist, ribs 8:47 p.m.: Re-evaluation, discussed with patient his negative imaging results. He is now complaining of left mandible and left TMJ pain pain, reproducible with palpation. Will obtain maxillofacial CT. 9:55 p.m.: Re-evaluation, discussed his negative maxillofacial study. He is answering questions appropriately. He is here with his daughter. I think the patient can be discharged home with usual and customary head injury precautions instructions. Regarding his orthopedic complaints, no definitive fracture visualized on x-ray, specifically for his right thumb we discussed possibility of acute gamekeeper's thumb. He has been immobilized and given orthopedic follow-up information and recommend follow up with Orthopedics. He and his daughter feel comfortable being discharged home. Departure - Departure Disposition: Home, Routine, Self-Care Clinical Impression: Pain of right thumb, Pain in left wrist Head injury due to trauma Qualifiers: Encounter type: initial encounter Qualified Code(s): S09.90XA - Unspecified injury of head, initial encounter Abrasion of left elbow Qualifiers: Encounter type: initial encounter Qualified Code(s): S50.312A - Abrasion of left elbow, initial encounter Left rib fracture Qualifiers: Encounter type: initial encounter Rib fracture type: single rib Fracture type: closed Qualified Code(s): S22.32XA - Fracture of one rib, left side, initial encounter for closed fracture Abrasion head Qualifiers: Encounter type: initial encounter Qualified Code(s): S00.91XA - Abrasion of unspecified part of head, initial encounter Condition: Good Instructions: Rib Fracture (ED), Head Injury (ED), Abrasion (ED), Wrist Sprain (ED) Additional Instructions: ALTHOUGH THERE IS NO EVIDENCE OF SERIOUS HEAD INJURY AT THIS TIME, DELAYED SIGNS CAN APPEAR 24 TO 48 HOURS AFTER INJURY. WE RECOMMEND THAT YOU DESIGNATE A FRIEND OR FAMILY MEMBER TO OBSERVE YOU OVER THE NEXT FEW DAYS TO ENSURE THAT YOUR CONDITION IS PROGRESSING NORMALLY. PLEASE RETURN TO THE EMERGENCY DEPARTMENT (ED) IMMEDIATELY IF YOU HAVE INCREASED HEADACHE, PERSISTENT HEADACHE , VOMITING, WEAKNESS, CONFUSION OR VISUAL PROBLEMS. WE RECOMMEND THAT YOU DO NOT RESUME CONTACT SPORTS OR ACTIVITIES THAT TAKE COORDINATION OR BALANCE SUCH SKIING OR RIDING A BICYCLE UNTIL CLEARED TO DO SO BY YOUR DOCTOR OR BY A NEUROLOGIST. Use your incentive spirometer every hour while awake Referrals: SHONDA WINSTON [Primary Care Provider] - 2-3 days, call for appt. Elliott Meraz MD [Medical Doctor] - 5-7 days, call for appt.
[2017-02-28 21:23] VITALS: O2SAT 94
[2017-02-28 22:45] VITALS: BP 135/80; PULSE 85; TEMP 97.9
== END 2017-02-28 22:45 | disposition home or self-care (01) ==
DX: S22.32XA Fracture of one rib, left side, initial encounter for closed fracture (principal); S50.312A Abrasion of left elbow, initial encounter; S00.91XA Abrasion of unspecified part of head, initial encounter; S69.91XA Unspecified injury of right wrist, hand and finger(s), initial encounter; S69.92XA Unspecified injury of left wrist, hand and finger(s), initial encounter; Z87.891 Personal history of nicotine dependence; Z86.73 Personal history of transient ischemic attack (TIA), and cerebral infarction without residual deficits; W01.198A Fall on same level from slipping, tripping and stumbling with subsequent striking against other object, initial encounter; Y99.8 Other external cause status; Y93.01 Activity, walking, marching and hiking
CPT/HCPCS: 29125; 70450; 70486; 71101; 73080; 73110; 73130; 99285; L3807; L3908

== ENCOUNTER 2017-06-21 20:43 | Inpatient (IN) | payer OTHER, MEDICAID ==
[2017-06-21] MEDS ORDERED: NS 500 ML IV ONE (20:50)
[2017-06-21 20:58] LABS: PLATELET COUNT 325 10^3/uL (150-400)
--- NOTE | 2017-06-21 21:00 | CPEKG ---
Heart Rate: 70 RR Interval: 857 P-R Interval: 168 QRSD Interval: 82 QT Interval: 408 QTC Interval: 441 P Morris: 61 QRS Morris: 54 T Wave Morris: 48 EKG Severity - NORMAL ECG - EKG Impression: SINUS RHYTHM Electronically Signed By: Basil Virgen 21-Jun-2017 23:02:19
[2017-06-21 21:16] LABS: PROTIME(PATIENT) 13.4 SEC (12.0-15.0)
--- NOTE | 2017-06-21 21:48 | EDPHY ---
H & P Time Seen by Provider: 06/21/17 20:50 HPI/ROS: HPI Altered mental status. 86-year-old male by ambulance from home. His is with him as are his children. He was at the dinner table. He was seated. At 8:00 p.m. he slumped his head down and would not respond to verbal and physical stimulus. This lasted approximately 10-15 minutes. EMS was called to the scene. By the time they arrived he was clearing and return to his baseline mental status according to his . No associated signs or symptoms. Denies palpitations, chest pain , shortness of breath, headache, new loss of sensation or weakness in his extremities. ROS: Constitutional: No fever, no chills. As above. Eyes: No discharge. No changes in vision. ENT: No sore throat. No nasal congestion or rhinorrhea. Respiratory: No cough. No shortness of breath. Cardiac: No chest pain, no palpitations. Gastrointestinal: No abdominal pain, no vomiting, no diarrhea. Genitourinary: No hematuria. No dysuria or increased frequency with urination. Musculoskeletal: No back pain. No neck pain. No myalgias or arthralgias. Skin: No rashes. Neurological: No headache. No new focal weakness or altered sensation. As above. Past medical history: Brain aneurysm with surgical intervention years ago. CVA in 2013, TIAs, seizure disorder for which she takes lamotrigine, right hip replacement, aspiration pneumonia, dementia, no vision from his left eye, right upper extremity weakness. Social history: Here with family. Nonsmoker. No alcohol. Physical Exam: General Appearance: Alert, no distress. This patient is responding to questions appropriately and in full sentences. This patient appears generally well-hydrated and well-nourished. Eyes: Pupils equal and round no pallor or injection. No lid edema, erythema or injection. ENT, Mouth: Mucous membranes are moist. The pharyngeal tissues are unremarkable. No edema or swelling. No asymmetry suggestive of abscess. No erythema or exudates. No tongue lacerations or abrasions. Respiratory: There are no retractions, lungs are clear to auscultation with good air movement bilaterally. Cardiovascular: Regular rate and rhythm. No murmur. Gastrointestinal: Abdomen is soft and nontender, no masses, bowel sounds normal. No focal tenderness at McBurney's point. No Gaffney sign. Neurological: Motor sensory function is grossly intact and base line. He has residual right upper extremity weakness. Cranial nerves are normal. Cerebellar function is normal. Skin: Warm and dry, no rashes. Musculoskeletal: Neck is supple and nontender. No pain on flexion of his neck. Extremities are symmetrical. All joints range without pain or impingement. Psychiatric: No agitation. No depression. Database: EKG: EKG time is 8:58 p.m.; EKG shows a narrow complex normal sinus rhythm with a ventricular rate of 70. The SC, QRS, QT intervals are within normal limits. There are no ST-T wave changes indicative of ischemic or injury pattern. No evidence of right heart strain. No evidence of WPW, Brugada syndrome, hypertrophic cardiomyopathy. Interpreted by me. Imaging: CT brain without contrast: Negative. Results were discussed with staff radiologist Dr. Esdras Ace. Procedures: Emergency department course: Vital signs reviewed. Mildly tachypneic in triage. Normal on my exam. Vital signs otherwise normal. EKG obtained and reviewed by myself. Patient was sent for CT imaging of his brain shortly after my evaluation. 9:45 p.m., patient re-evaluated. Resting comfortably at this time. No change in his neurologic status. Results of his emergency department workup discussed with him and his . Plan for admission reviewed. They endorse. All of their questions were answered. 10:10 p.m., spoke with on-call hospitalist. Dr. Koenig. Case discussed in detail with him. He accepts this patient for admission to telemetry observation. We both feel given his presentation that seizure is the most likely etiology. Differential Diagnosis: The differential diagnosis on this patient includes but is not limited to TIA, seizure, syncope. This represents a partial list of diagnoses considered. These considerations are based on history, physical exam, past history, reassessment and diagnostic testing. Smoking Status: Former smoker Constitutional: Initial Vital Signs Temperature (C) 36.7 C 06/21/17 20:48 Heart Rate 75 06/21/17 20:48 Respiratory Rate 22 H 06/21/17 20:48 Blood Pressure 104/64 06/21/17 20:48 O2 Sat (%) 93 06/21/17 20:48 O2 Delivery Mode Room Air Allergies/Adverse Reactions: No Known Allergies Allergy (Verified 12/20/16 08:02) Home Medications: Medication Instructions Recorded lamoTRIgine [LamICTAL 100 MG (*)] 200 mg PO BID #0 tab 06/29/16 Donepezil HCl [Aricept 5 MG (*)] 10 mg PO DAILY 06/21/17 Tamsulosin HCl [Flomax 0.4 MG (*)] 0.4 mg PO DAILY 06/21/17 Ibuprofen [Motrin (*)] 200 mg PO DAILY 06/22/17 Medical Decision Making - Data Points Laboratory Results: Laboratory Results 06/21/17 20:43 06/21/17 20:43 Medications Given: Discontinued Medications Sodium Chloride (Ns) 500 mls @ 0 mls/hr IV ONCE ONE; Wide Open PRN Reason: Protocol Stop: 06/21/17 20:51 Last Admin: 06/21/17 20:56 Dose: 500 mls Departure - Departure Disposition: [facility] In[facility] Acute Clinical Impression: Transient altered mental status, Probable seizure
[2017-06-21] MEDS ORDERED: ACETAMINOPHEN 325 MG TAB PO PRN (22:12)
[2017-06-21] MEDS ORDERED: ONDANSETRON 4 MG/2 ML VIAL IVP PRN (22:12)
[2017-06-21] MEDS ORDERED: ONDANSETRON DISINTEGRATING 4 MG TAB PO PRN (22:12)
--- NOTE | 2017-06-21 22:54 | PDGENHP ---
History and Physical - Chief Complaint Unresponsiveness - History of Present Illness 86 yo M w/ hx of dementia, seizure d/o, and stroke presents after episode of unresponsiveness at home. Patient was at home when his family noticed him slumped over in a chair. He was reportedly unresponsive for about 10 minutes so EMS was called. After waking, patient was somewhat more confused than usual. At the time of my evaluation he is A&Ox1 but appropriate and following commands well. He denies any new neurologic deficits; he has R hand weakness and L eye vision loss at baseline. Of note, he does have a seizure d/o for which he takes Lamictal. He reports compliance with this. Prior seizures have been described as ranging from abscence to generalized tonic clonic. History Information - Allergies/Home Medication List Allergies/Adverse Reactions: No Known Allergies Allergy (Verified 12/20/16 08:02) Home Medications: Donepezil HCl [Aricept 5 MG (*)] 06/21/17 [Last Taken Unknown] Tamsulosin HCl [Flomax 0.4 MG (*)] 06/21/17 [Last Taken Unknown] I have personally reviewed and updated: family history, medical history - Past Medical History CVA, dementia - Surgical History Additional surgical history: Evacuation of ICH - Family History Additional family history: Asked, denies - Social History Smoking Status: Former smoker Review of Systems Review of Systems: ROS: 10pt was reviewed & negative except for what was stated in HPI & below Physical Exam Physical Exam: Temp Pulse Resp BP Pulse Ox 36.7 C 78 20 118/62 96 06/21/17 20:48 06/21/17 21:46 06/21/17 21:46 06/21/17 21:46 06/21/17 21:46 Constitutional: no apparent distress, not in pain Eyes: PERRL, EOMI Ears, Nose, Mouth, Throat: moist mucous membranes, no oral mucosal ulcers Cardiovascular: regular rate and rhythym, systolic murmur Respiratory: no respiratory distress, clear to auscultation Gastrointestinal: normoactive bowel sounds, soft, non-tender abdomen Skin: warm, normal color Musculoskeletal: no muscle tenderness, no joint effusions Neurologic: sensation intact bilaterally, other (A&Ox1; L eye vision decreased, R hand weakness w/ mild tremor; in brace) Psychiatric: interacting appropriately, not anxious Lab Data & Imaging Review 06/21/17 20:43 06/21/17 20:43 WBC 7.27 10^3/uL (3.80-9.50) 06/21/17 20:43 RBC 4.17 10^6/uL (4.40-6.38) L 06/21/17 20:43 Hgb 13.7 g/dL (13.7-17.5) 06/21/17 20:43 Hct 40.3 % (40.0-51.0) 06/21/17 20:43 MCV 96.6 fL (81.5-99.8) 06/21/17 20:43 MCH 32.9 pg (27.9-34.1) 06/21/17 20:43 MCHC 34.0 g/dL (32.4-36.7) 06/21/17 20:43 RDW 13.3 % (11.5-15.2) 06/21/17 20:43 Plt Count 325 10^3/uL (150-400) 06/21/17 20:43 MPV 9.2 fL (8.7-11.7) 06/21/17 20:43 Neut % (Auto) 56.3 % (39.3-74.2) 06/21/17 20:43 Lymph % (Auto) 32.5 % (15.0-45.0) 06/21/17 20:43 [place] % (Auto) 9.2 % (4.5-13.0) 06/21/17 20:43 Eos % (Auto) 1.0 % (0.6-7.6) 06/21/17 20:43 Baso % (Auto) 0.7 % (0.3-1.7) 06/21/17 20:43 Nucleat RBC Rel Count 0.0 % (0.0-0.2) 06/21/17 20:43 Absolute Neuts (auto) 4.10 10^3/uL (1.70-6.50) 06/21/17 20:43 Absolute Lymphs (auto) 2.36 10^3/uL (1.00-3.00) 06/21/17 20:43 Absolute Monos (auto) 0.67 10^3/uL (0.30-0.80) 06/21/17 20:43 Absolute Eos (auto) 0.07 10^3/uL (0.03-0.40) 06/21/17 20:43 Absolute Basos (auto) 0.05 10^3/uL (0.02-0.10) 06/21/17 20:43 Absolute Nucleated RBC 0.00 10^3/uL (0-0.01) 06/21/17 20:43 Immature Gran % 0.3 % (0.0-1.1) 06/21/17 20:43 Immature Gran # 0.02 10^3/uL (0.00-0.10) 06/21/17 20:43 PT 13.4 SEC (12.0-15.0) 06/21/17 20:43 INR 1.00 (0.83-1.16) 06/21/17 20:43 APTT 23.3 SEC (23.0-38.0) 06/21/17 20:43 Sodium 141 mEq/L (135-145) 06/21/17 20:43 Potassium 4.1 mEq/L (3.5-5.2) 06/21/17 20:43 Chloride 101 mEq/L (97-110) 06/21/17 20:43 Carbon Dioxide 29 mEq/l (22-31) 06/21/17 20:43 Anion Gap 11 mEq/L (8-16) 06/21/17 20:43 BUN 27 mg/dL (7-23) H 06/21/17 20:43 Creatinine 1.4 mg/dL (0.7-1.3) H 06/21/17 20:43 Estimated GFR 48 06/21/17 20:43 Glucose 90 mg/dL (70-100) 06/21/17 20:43 Calcium 9.6 mg/dL (8.5-10.4) 06/21/17 20:43 Troponin I 0.021 ng/mL (0.000-0.034) 06/21/17 21:00 Ethyl Alcohol < 10 mg/dL (0-10) 06/21/17 20:43 Imaging Review: Imaging Impressions Head CT 06/21/17 20:51 Impression: 1. Remote left temporal area of encephalomalacia, presumably related to a remote infarct. 2. Postoperative changes of left temporoparietal craniotomy flap. 3. Elderly brain, with atrophy and probable white matter small vessel disease. 4. See above report for additional findings. Results called and discussed with Basil Virgen M.D., on June 21, 2017 at 2129. Assessment & Plan Assessment: 86 yo M w/ hx of dementia, stroke, and seizure d/o presents after period of unresponsiveness most likely consistent with a seizure. Plan: 1. Period of unresponsiveness - Most likely c/w seizure noting patient was unresponsive for >10 minutes, woke up confused beyond baseline, and has documented seizure history. Patient had no prodrome and denies symptoms of illness. He has been compliant with Lamictal. CTH stable from prior, troponin negative, and ECG in NSR w/o signs of ischemia. - Admit for observation - Seizure precautions - Check Lamictal level - Monitor on telemetry - Neurology consult placed 2. [place] - Mild elevation in serum creatinine at 1.4, unclear etiology but may represent pre-renal azotemia. - S/p 500 mL NS bolus - Monitor BMP - Avoid nephrotoxic agents 3. Seizure d/o - Likely as a result of ICH, encephalomalacia of L temporal area noted on CTH. On Lamictal 100 mg BID as outpatient. 4. Dementia - Cognitive dysfunction related to ICH. Takes donepezil at home. He is A&Ox1 at the moment, which appears to be near baseline. 5. Hx ICH - With resultant cognitive deficits. L temporal encephalomalacia noted on CTH. Diet - Regular Code - Full per discussion w/ patient; would discuss this with Lluvia once she is available as she is MDPOA. Ppx - SCDs Dispo - Admit to observation status
[2017-06-22 04:53] LABS: PLATELET COUNT 260 10^3/uL (150-400)
--- NOTE | 2017-06-22 09:06 | HOSPPROG ---
Hospitalist Progress Note Assessment/Plan: Suspected syncope - Hx from more suggestive of syncopal event, no seizure activity reported. CTH stable from prior, troponin negative, and EKG in NSR w/ o signs of ischemia. Discussed with Dr. [place]. Will pursue further syncope workup. - cont telemetry monitoring - check echo and carotid artery u/s - cont lamictal, no further changes per neurology [place] - Mild elevation in serum creatinine at 1.4, resolved with Cr down to 1.1 this am - S/p 500 mL NS bolus - Monitor BMP - Avoid nephrotoxic agents Seizure d/o - Likely as a result of ICH, encephalomalacia of L temporal area noted on CTH. - lamictal level pending Dementia - Cognitive dysfunction related to ICH. Takes donepezil at home. Seems to be near baseline. Hx ICH - With resultant cognitive deficits. L temporal encephalomalacia noted on CTH. Diet - Regular Code - Full Ppx - SCDs Dispo - change to inpt for ongoing w/u of syncope Subjective: Pt up in chair, demented, intermittently disruptive. Denies allen, vision changes, CP or SOB. He is a poor historian. Unable to provide accurate history of events. Objective: Vital Signs Temp Pulse Resp BP Pulse Ox 36.7 C 72 18 138/77 H 96 06/22/17 07:00 06/22/17 07:00 06/22/17 07:00 06/22/17 07:00 06/22/17 07:00 Laboratory Results 06/22/17 04:36 06/22/17 04:36 06/21/17 06/22/17 06/23/17 05:59 05:59 05:59 Intake Total 500 Balance 500 PT 13.4 SEC (12.0-15.0) 06/21/17 20:43 INR 1.00 (0.83-1.16) 06/21/17 20:43 - Physical Exam Constitutional: no apparent distress Eyes: PERRL Ears, Nose, Mouth, Throat: moist mucous membranes Cardiovascular: regular rate and rhythym Respiratory: no respiratory distress Gastrointestinal: normoactive bowel sounds, soft, non-tender abdomen Skin: warm Musculoskeletal: full muscle strength Psychiatric: poor memory ICD10 Worksheet Patient Problems: Problems Problem Status Onset Periprosthetic fracture around internal prosthetic right hip joint Acute Pneumonia Acute Seizure Acute Dante's paralysis Acute
--- NOTE | 2017-06-22 10:09 | NEUROPROG ---
Assessment: HOSPITAL NEUROLOGY CONSULT REQUESTING: Antonio Koenig MD REASON: ? 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 Patient has experienced symptomatic focal seizures manifest as right arm clonic movement since his ICH. He's had at least 3 episodes of secondary generalized convulsions. He is maintained on lamotrigine 200mg BID, and is compliant with his medication per report. Patient has baseline dementia, so I telephoned his who was witness to yesterday's events. She states she was preparing dinner and the patient was seated nearby. She witnessed him lose postural tone and slump forward with eyes closed. She states he sometimes falls asleep at the dinner table, so she was not too concerned. She went to arouse him, and after gently shaking him he seemed to open his eyes a bit, but was slow to come around, seemingly more confused than usual. This lasted about 10-15 minutes, then he was back to his usual self. No motoric activity was noted. He has not experienced an episode like this in the past. There was no indication of prodrome, including CP, SOB, palpitations, lightheadedness, nausea, flushing, sweating, visual graying. ROS: As per the HPI, otherwise a complete 12 point ROS was performed and is negative ALLERGIES AND MEDS: As recorded in the EMR - reviewed and reconciled PFSH: As per the intake H&P by Dr. Koenig from 06/21 EXAM: VS reviewed in EMR GEN: thin lederly man sitting in NAD HEENT: NCAT, sclera anicteric, conjunctiva not injected, MMM, oropharynx clear, no scalp tenderness NECK: supple, nontender, no meningismus CV: RRR s1 s2 wo m/r/c/g. Carotid pulses 2+ wo bruit NEURO: MS: awake, alert, oriented to self only. Speech nondysarthric. He has expressive aphasia manifest as word substitution/paraphasic/paraphonemic errors. Follows commands. Attends to both sides. Clear episodic and recent memory dysfunction on casual conversation. Mood euthymic. Adequate fund of knowledge. Poor insight. CN: pupils 3mm round and reactive, OS more sluggish. Unable to visualize fundi. VFF OD, blind OS (chronic). Primary gaze centered. Full ocular motility. Facial sensation preserved. Face symmetric. Hearing grossly intact to finger rub. Palatoglossal movements intact. Shoulder shrug and head turn strong. MOTOR: reduced bulk throughout. Normal tone. No adventitial movements. Full power throughout. SENSORY: symmetric/intact LT/PP throughout. No extinction. COORD: no ataxia FN/HS. Nicholas labored. REFLEX: plantars equivocal. No clonus. Absent ankle jerks, other DTRS 2/4. GAIT: deferred to PT safety eval DATA REVIEW: Labs reviewed in EMR PERSONALLY INTERPRETED RESULTS AND DATA: CT head wo - global volume loss, left temporal encephalomalacia, signal attenuation in the white matter reflective of chronic microvascular ischemic, left temporoparietal craniotomy defect, nothing acute IMPRESSION AND RECOMMENDATIONS: // SPELL OF LOSS OF AWARENESS - LIKELY SYNCOPE VS. PARASOMNIA // HX ICH // SYMPTOMATIC FOCAL EPILEPSY // [place] - resolved Patient's spell semiology is not consistent with seizure given the loss of postural tone and ability of to arouse him. I suspect his brief post- ictal confusion was likely from poor perfusions (in event of syncope) coupled with a brain with low reserved (encephalomalacia/white matter disease, dementia) . He did present with low BP and [place], so certainly has a substrate for syncope. Could also represent a parasomnia given his reported frequent falling asleep at dinner. Case discussed with Dr. Maldonado - syncope workup will be pursued. Cont on home lamotrigine dosing. Will sign off. Recall PRN. Objective: Vital Signs Temp Pulse Resp BP Pulse Ox 36.7 C 72 18 138/77 H 96 06/22/17 07:00 06/22/17 07:00 06/22/17 07:00 06/22/17 07:00 06/22/17 07:00 Laboratory Results 06/22/17 04:36 06/22/17 04:36 06/21/17 06/22/17 06/23/17 05:59 05:59 05:59 Intake Total 500 Balance 500 PT 13.4 SEC (12.0-15.0) 06/21/17 20:43 INR 1.00 (0.83-1.16) 06/21/17 20:43 Allergies/Adverse Reactions: No Known Allergies Allergy (Verified 12/20/16 08:02)
[2017-06-22] MEDS: DONEPEZIL HCL 5 MG TAB PO SCH (11:17)
[2017-06-22] MEDS: lamoTRIgine 100 MG TAB PO SCH ×2 (11:18→20:02)
[2017-06-22] MEDS: TAMSULOSIN HCL 0.4 MG CAP PO SCH (11:18)
--- NOTE | 2017-06-22 13:25 | ECHO ---
[email or web address] [address] [address] Main: [phone] Fax: Transthoracic Echocardiogram Name: VIBHA MORGAN MR#: [id number] Study Date: 06/22/2017 Study Time: 10:34 AM Date of : 1930 Age: 86 year(s) Height: 175.3 cm (69 in.) Weight: 53.98 kg (119 lb.) BSA: 1.66 m2 Gender: Male Examination: Echo Indication: Cardiac: syncope Image Quality: Contrast: Requested by: Sravani Maldonado BP: 131 mmHg/72 mmHg Heart Rate: Rhythm: Normal sinus rhythm Indication: Cardiac: syncope Procedure Staff Heavy Lift Rigger: Alex Engel RDCS Reading Physician: Olvin Blood Requesting Provider: Conclusions: Normal size left ventricle. Normal global systolic LV function. EF is 64 %. Diastolic dysfunction is present. . Mild mitral annular calcification. Mild aortic cusp calcification is noted. Trivial tricuspid valve regurgitation. Measurements: Chambers Valvular Assessment AV/MV Valvular Assessment TV/PV Normal Normal Normal Name Value Range Name Value Range Name Value Range Ao Erna (MM): 3.2 cm (2.2 cm-3.7 LVOT Vmax: 0.84 m/s (0.7 m/s-1.1 TR Vmax: 2.34 mm/s ( - ) cm) m/s) TR PGmax: 22 mmHg ( - ) IVSd (2D): 0.8 cm (0.6 cm-1.1 MV E Vmax: 0.50 m/s ( - ) syst. PAP: 27 mmHg ( - ) cm) MV A Vmax: 0.81 m/s ( - ) PV Vmax: 0.71 m/s (0.6 m/s-0.9 LVDd (2D): 4.5 cm (4.2 cm-5.9 MV E/A: 0.62 ( - ) m/s) cm) PV PGmax: 2 mmHg ( - ) LVDs (2D): 2.9 cm (2.1 cm-4 cm) LVPWd (2D): 1.0 cm (0.6 cm-1 cm) LVEF (2D): 64 (>=54 %) Continued Measurements: Chambers Valvular Assessment AV/MV Valvular Assessment TV/PV Name Value Name Value Name Value LADs Lon.5 cm MV E/E' Septal: 7.90 CVP (est.): 5 mmHg LA Area: 13.2 cm2 MV E/E' Lateral: 8.10 Patient: VIBHA MORGAN Study Date: 06/22/2017 Page 1 of 2 10:34 AM LA Volume: 35 ml LA Volume Index: 21.1 ml/m2 Findings: Left Ventricle: Normal size left ventricle. Normal global systolic LV function. EF is 64 %. Diastolic dysfunction is present. . Right Ventricle: Normal size right ventricle. Normal RV function. Left Atrium: The left atrium is normal in size. Right Atrium: The right atrium is normal in size. Mitral Valve: The mitral valve is normal in appearance and function. Mild mitral annular calcification. Aortic Valve: Mild aortic cusp calcification is noted. There is no aortic valve regurgitation. Tricuspid Valve: The tricuspid valve is normal in appearance and function. Trivial tricuspid valve regurgitation. Pulmonic Valve: The pulmonic valve is normal in appearance and function. Aorta: The aorta is normal. Pericardium: No pericardial effusion. (No Signature Object) Patient: VIBHA MORGAN Study Date: 06/22/2017 Page 2 of 2 10:34 AM [id number]
--- NOTE | 2017-06-22 15:14 | ASMTCMCOM ---
CM Note CM Note Notes: Reviewed chart and discussed w/RN. Anticipate that pt will dc home w/family ( is out of town but his son will be with him) when medically ready. Date Signed: 06/22/2017 03:13 PM Electronically Signed By:Patrizia Zepeda RN
[2017-06-22] MEDS ORDERED: OLANZapine DISINTEGR 5 MG TAB PO PRN (21:13)
--- NOTE | 2017-06-23 06:48 | PDMN ---
Medical Necessity Medical necessity: change to IP; los>2mn for further w/u for syncope after episode of unresponsiveness; requires continued tele, echo and carotid US, monitor BMP r/t [place] on admission; comorbid sz d/o, ICH, and dementia; per order and progress note 06/22/17
[2017-06-23 07:36] VITALS: PULSE 79; RESP 18; TEMP 98; O2SAT 95
[2017-06-23] MEDS: DONEPEZIL HCL 5 MG TAB PO SCH (09:08)
[2017-06-23] MEDS: lamoTRIgine 100 MG TAB PO SCH (09:08)
[2017-06-23] MEDS: TAMSULOSIN HCL 0.4 MG CAP PO SCH (09:09)
[2017-06-23 14:08] VITALS: BP 123/67
== END 2017-06-23 13:26 | disposition home or self-care (01) | DRG 101 ==
LOC: EDUNIT# → F3E 23:50 → OBSVTOIN 06-22 18:07
PROVIDERS: ADMIT Student in an Organized Health Care Education/Training Program; ATTEND Student in an Organized Health Care Education/Training Program
DX: G40.409 Other generalized epilepsy and epileptic syndromes, not intractable, without status epilepticus (principal); N17.9 Acute kidney failure, unspecified; F03.90 Unspecified dementia, unspecified severity, without behavioral disturbance, psychotic disturbance, mood disturbance, and anxiety; Z87.891 Personal history of nicotine dependence; Z86.73 Personal history of transient ischemic attack (TIA), and cerebral infarction without residual deficits
CPT/HCPCS: 80175-90; 97165-GO; G0378; G0480; G8987-GO-CI; G8988-GO-CI; G8989-GO-CI

== ENCOUNTER → 2017-10-07 | Outpatient (CLI) | payer OTHER, MEDICAID | LOC: BMCIMAGING 14:02 | PROVIDERS: ATTEND Orthopaedic Surgery Orthopaedic Surgery of the Spine | DX: Z13.820 Encounter for screening for osteoporosis (principal); M81.0 Age-related osteoporosis without current pathological fracture; Z96.641 Presence of right artificial hip joint ==